=== PATIENT | female | born 1980 | race Hispanic/Latino ===

== ENCOUNTER 2019-09-16 02:07 | Emergency (ER) | payer OTHER ==
[2019-09-16 03:20] LABS: Barbiturates NEGATIVE (NEGATIVE); Benzodiazepines NEGATIVE (NEGATIVE); Cocaine NEGATIVE (NEGATIVE); METHAMPHETAM NEGATIVE (NEGATIVE); Methadone NEGATIVE (NEGATIVE); Opiates NEGATIVE (NEGATIVE); Phencyclidine NEGATIVE (NEGATIVE); THC Cannibis NEGATIVE (NEGATIVE)
[2019-09-16 03:22] LABS: Absolute Lymphocytes (CBC) 0.9 K/uL (0.7-4.9); Basophils % 0.3 % (0-1.3); Hematocrit 34.9 % (36.0-45.0); Lymphocytes % 9.1 % (15.3-44.8); MPV 10.1 fL (7.6-11.3); RBC Red Blood Cell Count 3.92 M/uL (3.86-4.86)
[2019-09-16 03:32] LABS: ALT/SGPT 21 U/L (12-78); AST/SGOT 11 U/L (15-37); Albumin 3.5 g/dL (3.4-5.0); Alkaline Phosphatase 40 U/L (45-117); BUN Blood Urea Nitrogen 11 mg/dL (7-18); Bicarbonate 23 mmol/L (21-32); Bilirubin Direct < 0.1 mg/dL (0-0.2); Bilirubin Total 0.2 mg/dL (0.2-1.0); Glucose Level 101 mg/dL (74-106); Lipase 141 U/L (73-393); Magnesium 1.9 mg/dL (1.8-2.4); Potassium 3.8 mmol/L (3.5-5.1); Protein, Total 6.9 g/dL (6.4-8.2); Sodium Level 140 mmol/L (136-145)
[2019-09-16 05:05] LABS: Urine Specific Gravity >1.030 (1.005-1.030)
[2019-09-16 05:05] LABS: Urine Blood TRACE (NEG); Urine Glucose NEGATIVE (NEG); Urine Protein 2+ (NEG); Urine Specific Gravity >1.030 (1.005-1.030); Urine pH 5.5 (5.0-7.0)
--- NOTE | 2019-09-16 05:17 | EDPHYS ---
Physician Documentation [facility] Name: Talia Marcial Age: 38 yrs Sex: Female : 1980 Arrival Date: 09/16/2019 Time: 02:11 Bed 6 Private MD: ED Physician Reginald Gandhi HPI: 09/16 05:13 This 38 yrs old Female presents to ER via EMS with complaints of Probable tw4 Seizure. 05:13 The patient presents after having a possible seizure episode, no tonic-clonic activity tw4 was appreciated, no post-ictal period is described. Character of seizure(s): Loss of consciousness: it is not known if the patient experienced loss of consciousness, Motor activity: the motor activity is unknown, Incontinence: none, Apnea: the patient did not experience apnea, Circulation: the patient did not experience evidence of pulse disturbance, Eye movements: are unknown. Seizure onset: just prior to arrival. Context: the seizure(s) was witnessed, by family. Seizure Hx: the patient has no previous seizure history. The patient has not experienced similar symptoms in the past. Historical: - Allergies: 02:25 No Known Allergies; ea - Home Meds: 02:25 muscle relaxer [Active]; ea - PMHx: 02:25 None; ea - PSHx: 02:25 ; ea - Immunization history:: Adult Immunizations up to date. - Coronavirus screen:: The patient has NOT traveled to [place], [place], or [place] in the past 14 days. - Social history:: Smoking status: Patient denies any tobacco usage or history of. - Ebola Screening: : No symptoms or risks identified at this time. ROS: 05:13 Constitutional: Negative for fever, chills, and weight loss. tw4 05:13 Eyes: Negative for injury, pain, redness, and discharge, Cardiovascular: Negative for chest pain, palpitations, and edema, Respiratory: Negative for shortness of breath, cough, wheezing, and pleuritic chest pain, Abdomen/GI: Negative for abdominal pain, nausea, vomiting, diarrhea, and constipation, Back: Negative for injury and pain, MS/Extremity: Negative for injury and deformity, Skin: Negative for injury, rash, and discoloration. 05:13 Neuro: Positive for altered mental status, seizure activity, Negative for dizziness, gait disturbance, hearing loss. 05:13 Psych: Positive for anxiety, Negative for depression, drug dependence, alcohol dependence, auditory hallucinations, visual hallucinations, homicidal ideation, insomnia, suicide gesture. Exam: 05:13 Constitutional: This is a well developed, well nourished patient who is awake, alert, tw4 and in no acute distress. Head/Face: Normocephalic, atraumatic. Chest/axilla: Normal chest wall appearance and motion. Nontender with no deformity. No lesions are appreciated. Cardiovascular: Regular rate and rhythm with a normal S1 and S2. No gallops, murmurs, or rubs. Normal PMI, no JVD. No pulse deficits. Respiratory: Lungs have equal breath sounds bilaterally, clear to auscultation and percussion. No rales, rhonchi or wheezes noted. No increased work of breathing, no retractions or nasal flaring. Abdomen/GI: Soft, non-tender, with normal bowel sounds. No distension or tympany. No guarding or rebound. No evidence of tenderness throughout. Back: No spinal tenderness. No costovertebral tenderness. Full range of motion. Skin: Warm, dry with normal turgor. Normal color with no rashes, no lesions, and no evidence of cellulitis. MS/ Extremity: Pulses equal, no cyanosis. Neurovascular intact. Full, normal range of motion. Neuro: Awake and alert, GCS 15, oriented to person, place, time, and situation. Cranial nerves II-XII grossly intact. Motor strength 5/5 in all extremities. Sensory grossly intact. Cerebellar exam normal. Normal gait. Vital Signs: 02:22 BP 125 / 79; Pulse 106; Resp 18; Temp 98.2; Pulse Ox 100% on R/A; Weight 59.87 kg; ea Height 5 ft. 2 in. (157.48 cm); Pain 0/10; 03:29 BP 103 / 68; Pulse 88; Resp 18; Pulse Ox 99% on R/A; ea 05:15 BP 101 / 80; Pulse 78; Resp 18; Temp 98; Pulse Ox 98% ; ea 02:22 Body Mass Index 24.14 (59.87 kg, 157.48 cm) ea [place] Coma Score: 02:26 Eye Response: spontaneous(4). Verbal Response: oriented(5). Motor Response: obeys ea commands(6). Total: 15. MDM: 02:15 Patient medically screened. tw4 05:13 Differential diagnosis: drug overdose, seizure. Data reviewed: vital signs, EMS record. Data reviewed: nurses notes. Data reviewed: lab test result(s), cardiac enzymes, CBC, electrolytes, hepatic panel, urine drug screen, radiologic studies, CT scan. Data interpreted: Pulse oximetry: Interpretation: normal. Counseling: I had a detailed discussion with the patient and/or guardian regarding: the historical points, exam findings, and any diagnostic results supporting the discharge/admit diagnosis, lab results. Special discussion: I discussed with the patient/guardian in detail that at this point there is no indication for admission to the hospital. It is understood, however, that if the symptoms persist or worsen the patient needs to return immediately for re-evaluation. 09/16 02:22 Order name: UDS; Complete Time: 03:52 09/16 03:52 Interpretation: Within normal limits. 09/16 02:22 Order name: Basic Metabolic Panel; Complete Time: 03:52 09/16 03:52 Interpretation: Normal except: CL 111; GFR 72. 09/16 02:22 Order name: CBC with Diff; Complete Time: 03:52 09/16 03:52 Interpretation: Normal except: HGB 11.7; HCT 34.9; LYM% 9.1; MIYA% 84.2; NEUT A 8.2. 09/16 02:22 Order name: Hepatic Function; Complete Time: 03:52 09/16 03:52 Interpretation: Normal except: AST 11; ALK 40; A/G 1.0. 09/16 02:22 Order name: Lipase; Complete Time: 03:52 09/16 02:22 Order name: Magnesium; Complete Time: 03:52 09/16 02:22 Order name: Cardiac monitoring; Complete Time: 02:54 09/16 02:22 Order name: IV Saline Lock; Complete Time: 02:36 09/16 02:22 Order name: Labs collected and sent; Complete Time: 02:36 09/16 02:22 Order name: NPO; Complete Time: 02:36 09/16 02:22 Order name: O2 Per Protocol; Complete Time: 02:36 09/16 02:52 Order name: Urine Dipstick--Ancillary (enter results); Complete Time: 05:12 mw2 09/16 05:12 Interpretation: Normal except: USPGR >1.030; UPROT 2+; UBLD TRACE. 09/16 03:52 Order name: CT Head Brain wo Cont 09/16 04:02 Order name: Urine --Ancillary (enter results); Complete Time: 05:12 mw2 09/16 05:12 Interpretation: Within normal limits. 09/16 02:22 Order name: O2 Sat Monitoring; Complete Time: 02:36 09/16 02:22 Order name: Urine Dipstick-Ancillary (obtain specimen); Complete Time: 02:51 09/16 02:22 Order name: Urine Test (obtain specimen); Complete Time: 02:50 Administered Medications: No medications were administered Disposition: 09/16/19 05:16 Discharged to Home. Impression: Anxiety disorder due to known physiological condition, Conversion disorder with seizures or convulsions. - Condition is Stable. - Discharge Instructions: Panic Attacks, Nonepileptic Seizures, Conversion Disorder. - Family Work Release, Medication Reconciliation Form, Thank You Letter, Antibiotic Education, Prescription Opioid Use form. - Follow up: Private Physician; When: Upon discharge from the Emergency Department; Reason: Recheck today's complaints, Continuance of care. Follow up: Norberto Silverio MD; When: Upon discharge from the Emergency Department; Reason: Recheck today's complaints, Continuance of care, Re-evaluation by your physician. - Problem is new. - Symptoms have improved. Signatures: Dispatcher [employer] EDRonit Andrew RN RN ea Wadley, Terrence, MD MD tw4 Corrections: (The following items were deleted from the chart) 05:32 05:16 09/16/2019 05:16 Discharged to Home. Impression: Anxiety disorder due to known ea physiological condition; Conversion disorder with seizures or convulsions. Condition is Stable. Forms are Medication Reconciliation Form, Thank You Letter, Antibiotic Education, Prescription Opioid Use. Follow up: Private Physician; When: Upon discharge from the Emergency Department; Reason: Recheck today's complaints, Continuance of care. Follow up: Norberto Silverio; When: Upon discharge from the Emergency Department; Reason: Recheck today's complaints, Continuance of care, Re-evaluation by your physician. Problem is new. Symptoms have improved. tw4
--- NOTE | 2019-09-16 05:17 | ER ---
Nurse's Notes [facility] Name: Talia Marcial Age: 38 yrs Sex: Female : 1980 Arrival Date: 09/16/2019 Time: 02:11 Bed 6 Private MD: Diagnosis: Anxiety disorder due to known physiological condition;Conversion disorder with seizures or convulsions Presentation: 09/16 02:12 Presenting complaint: EMS states: They came in and pt was shaking, screaming that she ea was burning and was holding onto . Transition of care: patient was not received from another setting of care. Onset of symptoms was September 16, 2019. Risk Assessment: Do you want to hurt yourself or someone else? Patient reports no desire to harm self or others. Initial Sepsis Screen: Does the patient meet any 2 criteria? No. Patient's initial sepsis screen is negative. Does the patient have a suspected source of infection? No. Patient's initial sepsis screen is negative. Care prior to arrival: None. 02:12 Method Of Arrival: EMS: [facility] ea 02:12 Acuity: DEVAUGHN 3 ea Triage Assessment: 02:26 General: Appears in no apparent distress. Behavior is calm, cooperative, appropriate ea for age. Pain: Denies pain. Neuro: Level of Consciousness is awake, alert, obeys commands, Oriented to person, place, time, situation. Respiratory: Airway is patent Respiratory effort is even, unlabored, Respiratory pattern is regular, symmetrical. Derm: Skin is pink, warm \T\ dry. Historical: - Allergies: 02:25 No Known Allergies; ea - Home Meds: 02:25 muscle relaxer [Active]; ea - PMHx: 02:25 None; ea - PSHx: 02:25 ; ea - Immunization history:: Adult Immunizations up to date. - Coronavirus screen:: The patient has NOT traveled to [place], [place], or [place] in the past 14 days. - Social history:: Smoking status: Patient denies any tobacco usage or history of. - Ebola Screening: : No symptoms or risks identified at this time. Screenin:23 Abuse screen: Denies threats or abuse. Nutritional screening: No deficits noted. ea Tuberculosis screening: No symptoms or risk factors identified. Fall Risk None identified. Assessment: 02:26 Reassessment: see triage assessment. ea 02:54 Reassessment: Patient and/or family updated on plan of care and expected duration. Pain ea level reassessed. Patient is alert, oriented x 3, equal unlabored respirations, skin warm/dry/pink. Patient denies pain at this time. 03:29 Reassessment: Patient and/or family updated on plan of care and expected duration. Pain ea level reassessed. Patient is alert, oriented x 3, equal unlabored respirations, skin warm/dry/pink. 04:08 Reassessment: Patient and/or family updated on plan of care and expected duration. Pain ea level reassessed. Patient is alert, oriented x 3, equal unlabored respirations, skin warm/dry/pink. 05:30 Reassessment: Patient and/or family updated on plan of care and expected duration. Pain ea level reassessed. Patient is alert, oriented x 3, equal unlabored respirations, skin warm/dry/pink. Discharge instruction given to patient, verbalized the understanding of instruction. Pt left ED ambulatory accompanied by family. Pt tolerated well Patient denies pain at this time. Vital Signs: 02:22 BP 125 / 79; Pulse 106; Resp 18; Temp 98.2; Pulse Ox 100% on R/A; Weight 59.87 kg; ea Height 5 ft. 2 in. (157.48 cm); Pain 0/10; 03:29 BP 103 / 68; Pulse 88; Resp 18; Pulse Ox 99% on R/A; ea 05:15 BP 101 / 80; Pulse 78; Resp 18; Temp 98; Pulse Ox 98% ; ea 02:22 Body Mass Index 24.14 (59.87 kg, 157.48 cm) ea [place] Coma Score: 02:26 Eye Response: spontaneous(4). Verbal Response: oriented(5). Motor Response: obeys ea commands(6). Total: 15. ED Course: 02:11 Patient arrived in ED. ea 02:15 Reginald Gandhi MD is Attending Physician. tw4 02:22 Triage completed. ea 02:25 Arm band placed on right wrist. Patient placed in an exam room, on a stretcher, on ea pulse oximetry. 02:25 Patient has correct armband on for positive identification. Bed in low position. Call ea light in reach. Side rails up X2. 02:25 Seizure precautions initiated. ea 02:27 Knutson, Ronit, RN is Primary Nurse. ea 02:36 Inserted saline lock: 20 gauge in right antecubital area, using aseptic technique. ea Blood collected. 04:19 CT Head Brain wo Cont In Process Unspecified. EDMS 05:15 IV discontinued, intact, bleeding controlled, No redness/swelling at site. Pressure ea dressing applied. 05:16 Norberto Silverio MD is Referral Physician. tw4 05:31 No provider procedures requiring assistance completed. ea Administered Medications: No medications were administered Outcome: 05:16 Discharge ordered by . tw4 05:31 Discharged to home ambulatory, with family. ea 05:31 Condition: stable 05:31 Discharge instructions given to patient, family, Instructed on discharge instructions, follow up and referral plans. Demonstrated understanding of instructions, follow-up care. 05:32 Patient left the ED. ea Signatures: Dispatcher [employer] EDRonit Andrew, Reginald Hicks RN, ea, MD MD tw4
[2019-09-16 05:39] VITALS: BP 101/80; TEMP 98; O2SAT 98
--- NOTE | 2019-09-17 10:45 | RAD REPORT ---
EXAM DESCRIPTION: CT Head Without Intravenous Contrast CLINICAL HISTORY: The patient is 38 years old and is Female; SEIZURE TECHNIQUE: Axial computed tomography images of the head/brain without intravenous contrast. Sagitt al and coronal reformatted images were created and reviewed. This CT exam was performed using one o r more of the following dose reduction techniques: automated exposure control, adjustment of the mA and/or kV according to patient size, and/or use of iterative reconstruction technique. COMPARISON: No relevant prior studies available. FINDINGS: BRAIN: Unremarkable. The vale-white matter differentiation is preserved . No hemorrhag e. No significant white matter disease. No edema. No extra-axial fluid collections. VENTRICLES: Unremarkable. No ventriculomegaly. BONES/JOINTS: No acute fracture. SOFT TISSUES: Unremarkable. SINUSES: Unremarkable as visualized. No acute sinusitis. MASTOID AIR CELLS: Unremarkable as visualized. No mastoid effusion. ORBITS: Unremarkable as visualized. IMPRESSION: No acute intracranial findings. Electronically signed by: Shanna Damian MD 09/16/2019 4:50 AM MARRIAGE AND FAMILY THERAPIST Due to temporary technical issues with the PACS/Fluency reporting system, reports are being signed by the in house radiologist as a courtesy to ensure prompt reporting. The interpreting radiologist is f ully responsible for the content of the report.
== END 2019-09-16 05:32 | disposition home or self-care (01) ==
LOC: ER 02:07
DX: F44.5 Conversion disorder with seizures or convulsions (principal); F41.9 Anxiety disorder, unspecified
CPT/HCPCS: 36415; 70450; 80048; 80076; 80307; 81003; 81025; 83690; 83735; 85025; 99284

== ENCOUNTER 2022-06-25 06:28 | Emergency (ER) | payer OTHER ==
--- NOTE | 2022-06-25 09:14 | ER ---
Nurse's Notes [facility] Name: Talia Marcial Age: 41 yrs Sex: Female : 1980 Arrival Date: 06/25/2022 Time: 06:32 Bed 5 Private MD: Diagnosis: Myalgia;Fever, unspecified;Pain in throat Presentation: 06/25 06:42 Chief complaint: Spouse and/or significant other states: "she has a sore throat, as6 headache, and body aches". Coronavirus screen: Client presents with at least one sign or symptom that may indicate coronavirus-19. Ebola Screen: No symptoms or risks identified at this time. Initial Sepsis Screen: Does the patient meet any 2 criteria? No. Patient's initial sepsis screen is negative. Does the patient have a suspected source of infection? No. Patient's initial sepsis screen is negative. Risk Assessment: Do you want to hurt yourself or someone else? Patient reports no desire to harm self or others. Onset of symptoms was June 23, 2022. 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 - Social history:: Smoking status: Patient denies any tobacco usage or history of. Screenin:54 Abuse screen: Denies threats or abuse. Denies injuries from another. Nutritional as6 screening: No deficits noted. Tuberculosis screening: No symptoms or risk factors identified. Fall Risk None identified. Assessment: 06:53 General: Appears uncomfortable, Behavior is calm, cooperative. Pain: Complains of pain as6 in generalized Quality of pain is described as aching. Neuro: Reports headache. Respiratory: Reports cough that is Respiratory effort is even, unlabored, Breath sounds are clear bilaterally. EENT: Throat is reddened. 07:09 Reassessment: Patient appears in no apparent distress at this time. No changes from kc6 previously documented assessment. Patient and/or family updated on plan of care and expected duration. Pain level reassessed. Patient is alert, oriented x 3, equal unlabored respirations, skin warm/dry/pink. 07:09 Respiratory: Airway is patent Trachea midline. kc6 08:10 Reassessment: Patient appears in no apparent distress at this time. No changes from kc6 previously documented assessment. Patient and/or family updated on plan of care and expected duration. Pain level reassessed. Patient is alert, oriented x 3, equal unlabored respirations, skin warm/dry/pink. 09:10 Reassessment: Patient appears in no apparent distress at this time. No changes from kc6 previously documented assessment. Patient and/or family updated on plan of care and expected duration. Pain level reassessed. Patient is alert, oriented x 3, equal unlabored respirations, skin warm/dry/pink. Vital Signs: 06:42 BP 122 / 76; Pulse 83; Resp 18 S; Temp 98.6(O); Pulse Ox 99% on R/A; Weight 64.41 kg as6 (R); Height 5 ft. 2 in. (157.48 cm) (R); Pain 9/10; 08:01 BP 115 / 81; Pulse 74; Resp 18 S; Temp 98.4(O); Pulse Ox 100% on R/A; kc6 09:01 BP 109 / 75; Pulse 71; Resp 16 S; Pulse Ox 100% on R/A; kc6 06:42 Body Mass Index 25.97 (64.41 kg, 157.48 cm) as6 ED Course: 06:32 Patient arrived in ED. ja2 06:38 Vipul Ross, RN is Primary Nurse. as6 06:46 Triage completed. as6 06:47 Arm band placed on. as6 06:54 Bed in low position. Call light in reach. Side rails up X 1. as6 06:57 Boris Mcneal DO is Attending Physician. ms3 06:58 Influenza Screen (A Sent. as6 06:58 Strep Sent. as6 06:58 Influenza Screen (a \\T\\ B) Sent. as6 07:05 SARS-COV-2 RT PCR (Document "Date of Onset" if Symptomatic) Sent. kc6 09:13 Jarred Lerner DO is Referral Physician. ms3 09:28 No provider procedures requiring assistance completed. Patient did not have IV access kc6 during this emergency room visit. Administered Medications: No medications were administered Medication: 06:54 VIS not applicable for this client. as6 Outcome: 09:14 Discharge ordered by . ms3 09:28 Discharged to home ambulatory, with family. kc6 09:28 Condition: stable 09:28 Discharge instructions given to patient, family, Instructed on discharge instructions, follow up and referral plans. medication usage, Demonstrated understanding of instructions, follow-up care, medications, Prescriptions given X 1. 09:28 Patient left the ED. kc6 Signatures: Boris Mcneal DO DO ms3 Eligio GottliebVipul Huerta, RN RN as6 Shahnaz Vu RN RN kc6
--- NOTE | 2022-06-25 09:14 | EDPHYS ---
Physician Documentation [facility] Name: Talia Marcial Age: 41 yrs Sex: Female : 1980 Arrival Date: 06/25/2022 Time: 06:32 Bed 5 Private MD: ED Physician Boris Mcneal HPI: 06/25 09:15 This 41 yrs old Female presents to ER via Ambulatory with complaints of Sore ms3 Throat. 09:15 The patient presents with sore throat. The patient describes throat pain as aching. ms3 Onset: The symptoms/episode began/occurred 2 day(s) ago. Severity of symptoms: At their worst the symptoms were severe, in the emergency department the symptoms are unchanged, a " 9" out of "10". Modifying factors: The symptoms are alleviated by nothing, the symptoms are aggravated by nothing. 09:17 Associated signs and symptoms: Pertinent positives: chills, fever, headache. 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 - Social history:: Smoking status: Patient denies any tobacco usage or history of. ROS: 09:17 Abdomen/GI: Negative for abdominal pain, nausea, vomiting, diarrhea, and constipation, ms3 MS/Extremity: Negative for injury and deformity. 09:17 Constitutional: Negative for fever, and chills. Neck: Negative for injury, pain, and swelling, Cardiovascular: Negative for chest pain, and palpitations. 09:17 ENT: Positive for sore throat. 09:17 Respiratory: Positive for cough. 09:17 All other systems are negative. 09:17 Neuro: Positive for headache. ms3 Exam: 09:17 Constitutional: This is a well developed, well nourished patient who is awake, alert, ms3 and in no acute distress. Head/Face: Normocephalic, atraumatic. Neck: Trachea midline, no cervical lymphadenopathy. Supple, full range of motion without nuchal rigidity, or vertebral point tenderness. No Meningismus. Chest/axilla: Normal chest wall appearance and motion. Nontender with no deformity. Cardiovascular: Regular rate and rhythm with a normal S1 and S2. No gallops, murmurs, or rubs. Normal PMI, no JVD. No pulse deficits. Respiratory: Lungs have equal breath sounds bilaterally, clear to auscultation and percussion. No rales, rhonchi or wheezes noted. No increased work of breathing, no retractions or nasal flaring. Abdomen/GI: Soft, non-tender, with normal bowel sounds. No distension or tympany. No guarding or rebound. No evidence of tenderness throughout. 09:17 ENT: Exam is negative for Posterior pharynx: Tonsils: are normal in appearance, no enlargement, no erythema, no exudate, Uvula: normal, non-edematous, no erythema, swelling, is not appreciated, erythema, is not appreciated, exudate, is not appreciated, peritonsillar mass, is not appreciated. Vital Signs: 06:42 BP 122 / 76; Pulse 83; Resp 18 S; Temp 98.6(O); Pulse Ox 99% on R/A; Weight 64.41 kg as6 (R); Height 5 ft. 2 in. (157.48 cm) (R); Pain 9/10; 08:01 BP 115 / 81; Pulse 74; Resp 18 S; Temp 98.4(O); Pulse Ox 100% on R/A; kc6 09:01 BP 109 / 75; Pulse 71; Resp 16 S; Pulse Ox 100% on R/A; kc6 06:42 Body Mass Index 25.97 (64.41 kg, 157.48 cm) as6 MDM: 07:13 Patient medically screened. ms3 09:17 Data reviewed: vital signs, nurses notes, lab test result(s), and as a result, I will ms3 discharge patient. Counseling: I had a detailed discussion with the patient and/or guardian regarding: the historical points, exam findings, and any diagnostic results supporting the discharge/admit diagnosis, lab results, the need for outpatient follow up, to return to the emergency department if symptoms worsen or persist or if there are any questions or concerns that arise at home. ED course: Discussed labs with patient. Patient to follow-up with primary care physician in 2 to 3 days. Patient stands agrees with plan. All questions were answered. Return precautions discussed include worsening symptoms, or any other concerns. 06/25 06:50 Order name: Influenza Screen (a \\T\\ B); Complete Time: 09:12 as6 06/25 06:50 Order name: Strep; Complete Time: 09:12 as6 06/25 06:52 Order name: Influenza Screen (A ; Complete Time: 09:12 EDMS 06/25 06:58 Order name: SARS-COV-2 RT PCR (Document "Date of Onset" if Symptomatic) as6 06/25 07:45 Order name: Throat Culture EDMS Administered Medications: No medications were administered Disposition Summary: 06/25/22 09:14 Discharge Ordered Location: Home ms3 Condition: Stable ms3 Diagnosis - Myalgia ms3 - Fever, unspecified ms3 - Pain in throat ms3 Followup: ms3 - With: Jarred Lerner DO - When: 2 - 3 days - Reason: Recheck today's complaints Discharge Instructions: - Discharge Summary Sheet ms3 - Fever, Adult ms3 - Sore Throat ms3 Forms: - Medication Reconciliation Form ms3 - Work release form ss - Thank You Letter ms3 - Antibiotic Education ms3 - Prescription Opioid Use ms3 Prescriptions: - Tessalon Perles 100 mg Oral Capsule - take 1 capsule by ORAL route every 8 hours As needed; 15 capsule; Refills: 0, ms3 Product Selection Permitted Signatures: Dispatcher [employer] EDMS Boris Mcneal DO DO ms3 Vipul Ross RN RN as6 Corrections: (The following items were deleted from the chart) 09:18 09:17 Constitutional: Negative for fever, and chills. Neck: Negative for injury, pain, ms3 and swelling, Cardiovascular: Negative for chest pain, and palpitations. ms3
[2022-06-25 09:53] VITALS: TEMP 98.4; O2SAT 100
[2022-06-25 09:55] VITALS: BP 109/75
== END 2022-06-25 09:28 | disposition home or self-care (01) ==
LOC: ER 06:28
DX: R50.9 Fever, unspecified (principal); M79.10 Myalgia, unspecified site; R07.0 Pain in throat; Z20.822 Contact with and (suspected) exposure to COVID-19
CPT/HCPCS: 87070; 87081; 87804 ×2; 99283; U0003

== ENCOUNTER 2022-10-29 18:15 | Emergency (ER) | payer OTHER ==
[2022-10-29 23:02] VITALS: BP 132/81; TEMP 97.4; O2SAT 100
--- NOTE | 2022-11-10 17:18 | ER ---
Nurse's Notes [facility] Name: Talia Marcial Age: 41 yrs Sex: Female : 1980 Arrival Date: 10/29/2022 Time: 18:24 Bed IW1 Private MD: Diagnosis: Presentation: 10/29 19:10 Chief complaint: Patient states: "I've always suffered from back pain for 2 years now mb9 but today is worse and came in today to get medication prescribed. The whole back hurts". Coronavirus screen: Vaccine status: Patient reports receiving the 2nd dose of the covid vaccine. Ebola Screen: No symptoms or risks identified at this time. Initial Sepsis Screen: Does the patient meet any 2 criteria? No. Patient's initial sepsis screen is negative. Does the patient have a suspected source of infection? No. Patient's initial sepsis screen is negative. Risk Assessment: Do you want to hurt yourself or someone else? Patient reports no desire to harm self or others. Onset of symptoms was October 29, 2022. 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 - Social history:: Smoking status: Patient denies any tobacco usage or history of. 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 ID access number [id number]. mb9 Vital Signs: 19:10 BP 132 / 81; Pulse 80; Resp 18; Temp 97.4; Pulse Ox 100% ; Weight 64.41 kg (R); Height mb9 5 ft. 2 in. (R); Pain 8/10; 19:10 Body Mass Index 25.97 (64.41 kg, 157.48 cm) mb9 19:10 Pain Scale: Adult mb9 ED Course: 18:24 Patient arrived in ED. mr 19:16 Triage completed. mb9 19:17 Arm band placed on. mb9 19:39 Tommy Galaviz MD is Attending Physician. mavis 20:41 Radiology exam delayed due to test not completed at this time. 4 Administered Medications: No medications were administered Medication: 19:17 VIS not applicable for this client. mb9 Outcome: 22:16 Patient left the ED. bb Signatures: Tommy Galaviz MD MD cha Rivera, Mary mr StephanieVicki RN RN bb Hall, [facility] Siobhan Colin RN RN mb9 Corrections: (The following items were deleted from the chart) 19:17 19:16 Home Meds: None; ly9 mb9
--- NOTE | 2022-11-10 17:18 | EDPHYS ---
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 - Social history:: Smoking status: Patient denies any tobacco usage or history of. Vital Signs: 19:10 BP 132 / 81; Pulse 80; Resp 18; Temp 97.4; Pulse Ox 100% ; Weight 64.41 kg (R); Height mb9 5 ft. 2 in. (R); Pain 8/10; 19:10 Body Mass Index 25.97 (64.41 kg, 157.48 cm) mb9 19:10 Pain Scale: Adult mb9 MDM: 19:39 Patient medically screened. mavis 10/29 19:40 Order name: Urine Dipstick-Ancillary (obtain specimen) mavis 10/29 19:40 Order name: Urine Test (obtain specimen) mavis Administered Medications: No medications were administered Disposition Summary: 10/29/22 21:46 Eloped Disposition: before being seen by provider mavis Reason: (see nurse's notes) mavis Signatures: Dispatcher [employer] Tommy Ferguson MD MD cha Breneman, Mary Beth RN RN mb9 Corrections: (The following items were deleted from the chart) 19:17 19:16 Home Meds: None; mb9 mb9
== END 2022-10-29 22:16 | disposition left against medical advice (07) ==
LOC: ER 18:15
DX: Z53.21 Procedure and treatment not carried out due to patient leaving prior to being seen by health care provider (principal)
CPT/HCPCS: 99281

== ENCOUNTER 2023-02-02 08:43 | Emergency (ER) | payer OTHER ==
--- OUTSIDE RECORDS SUMMARY | 2023-02-02 08:46 | XMS REPORT | Continuity of Care Document ---
:1980 Author Organization [facility] t Address [address] [place] [address] [place] [id number] Care Team Providers Name Role Phone Unavailable Unavailable Unavailable Problems This patient has no known problems. Allergies, Adverse Reactions, Alerts This patient has no known allergies or adverse reactions. Medications This patient has no known medications. Procedures This patient has no known procedures. Encounters Start End Encounter Admission Attending Care Care Encounter Source Date/Time Date/Time Type Type Clinicians Facility Department ID 2022-12-05 2022-12-05 Outpatient [facility] [id number] 15:15:35 15:15:35 [id number] [address] [place] Results This patient has no known results.
[2023-02-02 09:42] LABS: SARS-CoV-2 Antigen Rapid Res Negative (Negative)
--- NOTE | 2023-02-02 09:52 | EDPHYS ---
Physician Documentation [facility] Name: Talia Marcial Age: 42 yrs Sex: Female : 1980 Arrival Date: 02/02/2023 Time: 08:43 Bed 12 Private MD: ED Physician Lalit Escobedo HPI: 02/02 09:36 This 42 yrs old Female presents to ER via Ambulatory with complaints of Flu snw Symptoms. 09:36 Onset: The symptoms/episode began/occurred suddenly, 1 day(s) ago, and became snw persistent. Associated signs and symptoms: Pertinent positives: congestion, cough, nasal discharge, sore throat. Modifying factors: The patient symptoms are alleviated by nothing. The patient has not experienced similar symptoms in the past. The patient has not recently seen a physician. Historical: - Allergies: 08:51 No Known Allergies; iw - Home Meds: 08:51 None [Active]; iw - PSHx: 08:51 section; iw - Social history:: Smoking status: . ROS: 09:35 Constitutional: Negative for fever, chills, and weight loss, Eyes: Negative for injury, snw pain, redness, and discharge, ENT: Negative for injury and discharge, sinus congestion Neck: Negative for injury, pain, and swelling, Cardiovascular: Negative for chest pain, palpitations, and edema. 09:35 Abdomen/GI: Negative for abdominal pain, nausea, vomiting, diarrhea, and constipation, Back: Negative for injury and pain, : Negative for injury, bleeding, discharge, and swelling, MS/Extremity: Negative for injury and deformity, Skin: Negative for injury, rash, and discoloration, Neuro: Negative for headache, weakness, numbness, tingling, and seizure, Psych: Negative for depression, anxiety, suicide ideation, homicidal ideation, and hallucinations. 09:35 Respiratory: Positive for cough, with no reported sputum. Exam: 09:34 Constitutional: This is a well developed, well nourished patient who is awake, alert, snw and in no acute distress. 09:34 Eyes: Pupils equal round and reactive to light, extra-ocular motions intact. Lids and lashes normal. Conjunctiva and sclera are non-icteric and not injected. Cornea within normal limits. Periorbital areas with no swelling, redness, or edema. 09:34 Neck: Trachea midline, no thyromegaly or masses palpated, and no cervical lymphadenopathy. Supple, full range of motion without nuchal rigidity, or vertebral point tenderness. No Meningismus. Chest/axilla: Normal chest wall appearance and motion. Nontender with no deformity. No lesions are appreciated. Cardiovascular: Regular rate and rhythm with a normal S1 and S2. No gallops, murmurs, or rubs. Normal PMI, no JVD. No pulse deficits. Respiratory: Lungs have equal breath sounds bilaterally, clear to auscultation and percussion. No rales, rhonchi or wheezes noted. No increased work of breathing, no retractions or nasal flaring. Abdomen/GI: Soft, non-tender, with normal bowel sounds. No distension or tympany. No guarding or rebound. No evidence of tenderness throughout. Back: No spinal tenderness. No costovertebral tenderness. Full range of motion. Skin: Warm, dry with normal turgor. Normal color with no rashes, no lesions, and no evidence of cellulitis. MS/ Extremity: Pulses equal, no cyanosis. Neurovascular intact. Full, normal range of motion. Neuro: Awake and alert, GCS 15, oriented to person, place, time, and situation. Cranial nerves II-XII grossly intact. Motor strength 5/5 in all extremities. Sensory grossly intact. Cerebellar exam normal. Normal gait. 09:34 Head/face: Noted is sinus congestion. 09:34 ENT: TM's: are normal, Nose: Nasal mucosa: edematous, Mouth: is normal, Posterior pharynx: erythema, that is moderate, Voice: is normal. Vital Signs: 08:50 BP 121 / 64; Pulse 90; Resp 16; Temp 99; Pulse Ox 98% on R/A; Weight 62.6 kg; Height 5 iw ft. 2 in. ; 08:50 Body Mass Index 25.24 (62.60 kg, 157.48 cm) iw MDM: 08:54 Patient medically screened. snw 09:49 Differential diagnosis: viral Infection, bacterial infection. Data reviewed: vital snw signs, nurses notes, lab test result(s). I considered the following discharge prescriptions or medication management in the emergency department Medications were administered in the Emergency Department. See MAR. Counseling: I had a detailed discussion with the patient and/or guardian regarding: the historical points, exam findings, and any diagnostic results supporting the discharge/admit diagnosis, lab results, the need for outpatient follow up, to return to the emergency department if symptoms worsen or persist or if there are any questions or concerns that arise at home. Special discussion: Based on the history and exam findings, there is no indication for further emergent testing or inpatient evaluation. I discussed with the patient/guardian the need to see the primary care provider for further evaluation of the symptoms. 02/02 08:54 Order name: Flu; Complete Time: 09:42 snw 02/02 08:54 Order name: Strep snw 02/02 08:54 Order name: SARS RAPID; Complete Time: 09:42 snw 02/02 09:46 Order name: Throat Culture EDMS Administered Medications: 10:10 Drug: Famotidine PO 20 mg Route: PO; iw 10:10 Drug: ZyrTEC - Cetirizine PO 10 mg Route: PO; iw 10:10 Drug: Tussionex Pennkinetic ER PO Suspension 2.5 ml Route: PO; iw Disposition: 11:45 Co-signature as Attending Physician, Indu VARELA PA/HAND CIGAR MAKING SUPERVISOR's history reviewed, [id number] patient interviewed, and examined. I agree with assessment and care plan and confirm the diagnosis (es) above. Disposition Summary: 02/02/23 09:51 Discharge Ordered Location: Home snw Condition: Stable snw Diagnosis - Acute bronchitis, unspecified snw Followup: snw - With: Emergency Department - When: As needed - Reason: Worsening of condition Followup: snw - With: Private Physician - When: 2 - 3 days - Reason: Recheck today's complaints, Continuance of care, Re-evaluation by your physician Discharge Instructions: - Discharge Summary Sheet snw - Acute Bronchitis, Adult snw Forms: - Medication Reconciliation Form snw - Thank You Letter snw - Antibiotic Education snw - Prescription Opioid Use snw - Work release form iw Prescriptions: - Zyrtec 10 mg Oral Tablet - take 1 tablet by ORAL route once daily As needed; 20 tablet; Refills: 0, snw Product Selection Permitted - Tessalon Perles 100 mg Oral Capsule - take 1 capsule by ORAL route every 8 hours As needed; 15 capsule; Refills: 0, snw Product Selection Permitted - Pepcid 20 mg Oral Tablet - take 1 tablet by ORAL route once daily; 20 tablet; Refills: 0, Product snw Selection Permitted Signatures: Dispatcher [employer] Tommy Ferguson MD MD cha Waters, Shelly, TILE PRESSER-C TILE PRESSER-Amyw Sabiha Durant, RN RN Lalit Law MD MD [email or web address] Corrections: (The following items were deleted from the chart) 08:52 08:51 PMHx: None; vladislav loomis
--- NOTE | 2023-02-02 09:52 | ER ---
Nurse's Notes [facility] Name: Talia Marcial Age: 42 yrs Sex: Female : 1980 Arrival Date: 02/02/2023 Time: 08:43 Bed 12 Private MD: Diagnosis: Acute bronchitis, unspecified Presentation: 02/02 08:50 Chief complaint: Patient states: right ear pain, sore throat, fever, body aches since iw last night, took ibuprofen at 1 am. Coronavirus screen: Client presents with at least one sign or symptom that may indicate coronavirus-19. Ebola Screen: Patient negative for fever greater than or equal to 101.5 degrees Fahrenheit, and additional compatible Ebola Virus Disease symptoms Patient denies exposure to infectious person. Patient denies travel to an Ebola-affected area in the 21 days before illness onset. No symptoms or risks identified at this time. Initial Sepsis Screen: Does the patient meet any 2 criteria? No. Patient's initial sepsis screen is negative. Does the patient have a suspected source of infection? No. Patient's initial sepsis screen is negative. Risk Assessment: Do you want to hurt yourself or someone else? Patient reports no desire to harm self or others. Onset of symptoms was February 01, 2023. 08:50 Method Of Arrival: Ambulatory iw 08:50 Acuity: DEVAUGHN 4 iw Historical: - Allergies: 08:51 No Known Allergies; iw - Home Meds: 08:51 None [Active]; iw - PSHx: 08:51 section; iw - Social history:: Smoking status: . Screenin:25 [facility] ED Fall Risk Assessment (Adult) History of falling in the last 3 months, iw including since admission No falls in past 3 months (0 pts). Abuse screen: Denies threats or abuse. Denies injuries from another. Nutritional screening: No deficits noted. Tuberculosis screening: No symptoms or risk factors identified. Assessment: 09:24 General: Appears in no apparent distress. Behavior is calm, cooperative. General: iw Reports fever for 12-24 hours, feeling ill for 12-24 hours. Pain: Complains of pain in body aches. Neuro: Level of Consciousness is awake, alert, obeys commands, Oriented to person, place, time, situation, Moves all extremities. Full function. Cardiovascular: Patient's skin is warm and dry. Respiratory: Respiratory effort is even, unlabored, Respiratory pattern is regular, symmetrical. GI: Abdomen is non-distended. Derm: Skin is intact, is healthy with good turgor. Musculoskeletal: Range of motion: intact in all extremities. Vital Signs: 08:50 BP 121 / 64; Pulse 90; Resp 16; Temp 99; Pulse Ox 98% on R/A; Weight 62.6 kg; Height 5 iw ft. 2 in. ; 08:50 Body Mass Index 25.24 (62.60 kg, 157.48 cm) iw ED Course: 08:44 Patient arrived in ED. im 08:51 Triage completed. iw 08:52 Arm band placed on. iw 08:53 Indu Guerrero FNP-C is PHCP. snw 08:53 Lalit Escobedo MD is Attending Physician. snw 09:24 Sabiha Durant RN is Primary Nurse. iw 09:25 No provider procedures requiring assistance completed. Patient did not have IV access iw during this emergency room visit. Administered Medications: 10:10 Drug: Famotidine PO 20 mg Route: PO; iw 10:10 Drug: ZyrTEC - Cetirizine PO 10 mg Route: PO; iw 10:10 Drug: Tussionex Pennkinetic ER PO Suspension 2.5 ml Route: PO; iw Medication: 09:25 VIS not applicable for this client. iw Outcome: 09:51 Discharge ordered by . snw 10:23 Patient left the ED. iw Signatures: Indu Guerrero FNP-C VACUUM COOKER OPERATOR-Csnw Sabiha Durant, LAINE RN iw Rosmery Cintron im Corrections: (The following items were deleted from the chart) 08:52 08:51 PMHx: None; iw iw
[2023-02-02] MEDS ORDERED: CETIRIZINE HCL 5 MG TABLET ONE (10:11)
[2023-02-02] MEDS ORDERED: FAMOTIDINE 20 MG TAB ONE (10:12)
[2023-02-02] MEDS ORDERED: HYDROCODONE/CHLORPHEN 5 ML/OSYR ONE (10:12)
[2023-02-02 10:27] VITALS: BP 121/64; TEMP 99; O2SAT 98
== END 2023-02-02 10:23 | disposition home or self-care (01) ==
LOC: ER 08:43
DX: J20.9 Acute bronchitis, unspecified (principal); Z20.822 Contact with and (suspected) exposure to COVID-19
CPT/HCPCS: 36415; 87070; 87081; 87804; 87811; 99282

== ENCOUNTER 2023-02-24 04:24 | Emergency (ER) | payer OTHER ==
--- OUTSIDE RECORDS SUMMARY | 2023-02-24 04:26 | XMS REPORT | Continuity of Care Document ---
:1980 Author Organization [facility] t Address [address] [facility] [address] [place] [address] Care Team Providers Name Role Phone JAYA CARDOSO Primary Care Physician Unavailable Noe Irving Attending Clinician NOE GHOTRA Attending Clinician Unavailable NOE GHOTRA Admitting Clinician Unavailable Payers Payer Name Policy Type Policy Number Effective Date Expiration Date S ource Problems This patient has no known problems. Allergies, Adverse Reactions, Alerts Allergy Allergy Status Severity Reaction(s) Onset Inactive Treating Comm ents Source Name Type Date Date Clinician NO KNOWN Drug Active Univers ALLERGIE Class ity of [facility] Social History Social Habit Start Date Stop Date Quantity Comments Source Sex Assigned At [birth year] [facility] y of [place] 00:00:00 00:00:00 Medical Branch Smoking Status Start Date Stop Date Source Tobacco smoking consumption [facility] Branch Medications Ordered Filled Start Stop Current Ordering Indication Dosage Frequency Signature Comments Components Source Medication Medication Date Date Medication? Clinician (SIG) Name Name amoxicillin 2022-0 2022- No 1{tbl} 1 tablet, Univers -clavulanat 02-0418 Oral, ity [facility] 05:43: 05:51 ONCE, 1 [place] (AUGMENTIN) 00 :00 dose, On [facility] jordin 875-125 mg [facility] per tablet 02/04/23 at 1 tablet 0045, DONNY
Re ason for Anti-Infec tive: Documented Infection< br>Documen val Infection Site: Respirator y
Durat ion of Therapy: Other (see Comments) ibuprofen 2022- No 600mg 600 mg, Uni vers (IBU) 02-04 Oral, ity of tablet 600 04:30: 04:46 ONCE, 1 [place] as mg 00 :00 dose, On Medical Sat Branch 02/03/23 at 2330, DONNY albuterol Yes [id number] 2{puff} Inhale 2 Univers 90 - Puffs ity of mcg/actuati 00:00: every 4 [place] as on inhaler 00 (four) Medical hours as Branch needed for Wheezing, Shortness of Breath or Bronchospa sm. amoxicillin 2022- Yes [id number] 1{tbl} Take 1 Univers -clavulanat 02-04 tablet by it y of e 875-125 00:00: 04:59 mouth in [place] as mg per 00 :00 the Medical tablet morning Branch and 1 tablet in the evening. Do all this for 10 days. azithromyci 2022- Yes [id number] 500mg Take 1 Univers n 500 mg 02-04 tablet by ity o f tablet 00:00: 04:59 mouth in [place] 00 :00 the Medical morning Branch for 3 days. Vital Signs Vital Name Observation Time Observation Value Comments Source Systolic blood 2023-02-04 04:06:00 134 mm[facility] Diastolic blood 2023-02-04 04:06:00 79 mm[Hg] [facility] [place] Heart rate 2023-02-04 04:06:00 87 /min [facility] Body temperature 2023-02-04 04:06:00 36.83 [facility] Respiratory rate 2023-02-04 04:06:00 18 /min [facility] Body height 2023-02-04 04:06:00 157.5 cm [facility] Body weight 2023-02-04 04:06:00 64.864 kg [facility] BMI 2023-02-04 04:06:00 26.16 kg/m2 [facility] Oxygen saturation in 2023-02-04 04:06:00 97 /min [facility] of Arterial blood by [facility] Pulse oximetry Branch Procedures Procedure Date / Time Performed Performing Clinician Ochoa chan RAPID INFLUENZA A/B 2023-02-04 04:46:00 Noe Ghotra ty of [facility] COVID-19 (ID NOW RAPID 2023-02-04 04:46:00 Noe Ghotra [facility] TESTING) Medical Branch XR CHEST 2 VW 2023-02-04 04:41:51 Noe Ghotra [place] o f [facility] ASSIGNMENT OF BENEFITS 2023-02-04 04:30:43 Doctor Unassigned, No [facility] Name Medical Branch NOTICE OF PRIVACY 2023-02-04 03:46:30 Doctor Unassigned, No [facility] Name Medical [place] CONSENT/REFUSAL FOR 2023-02-04 03:46:07 Doctor Unassigned, No [facility] DIAGNOSIS AND Name Medical Branch TREATMENT Encounters Start End Encounter Admission Attending Care Care Encounter Source Date/Time Date/Time Type Type Clinicians Facility Department ID 2023-02-21 2023-02-21 Outpatient SFA [id number] [id number] [place] 07:30:05 07:30:05 [id number] F Willard 2023-02-13 2023-02-13 Outpatient SFA [id number] [id number] [place] 07:43:25 07:43:25 [id number] F Willard 2023-02-09 2023-02-09 Outpatient SFA SFA [id number] [place] 07:51:27 07:51:27 [id number] F Willard 2023-02-03 2023-02-04 Emergency Brandin [facility] [id number] Univers 23:09:00 01:07:00 Noe EDMONDS [id number] i [facility] [id number] [facility] [id number] [facility] 084 Branch 2023-02-03 2023-02-04 Emergency X BRANDIN [facility] ERT [id number] Univers 23:09:00 01:07:00 NOE mayo [facility] 2022-12-05 2022-12-05 Outpatient SFA SFA [id number] [place] 15:15:35 15:15:35 [id number] F Nathen Results This patient has no known results.
[2023-02-24 05:08] LABS: MCV 85.3 fL (80-100); MPV 8.1 fL (7.6-11.3); RBC Red Blood Cell Count 3.63 M/uL (3.86-4.86)
[2023-02-24 05:27] LABS: ALT/SGPT 44 U/L (13-56); AST/SGOT 25 U/L (15-37); Albumin 2.8 g/dL (3.4-5.0); Alkaline Phosphatase 131 U/L (45-117); BUN Blood Urea Nitrogen 15 mg/dL (7-18); Bicarbonate 24 mEq/L (21-32); Bilirubin Total 0.3 mg/dL (0.2-1.0); Glomerular Filtration Rate 110 ml/min (=/>90); Glucose Level 110 mg/dL (74-106); Lipase 40 U/L (13-75); Potassium 3.7 mEq/L (3.5-5.1); Protein, Total 7.9 g/dL (6.4-8.2); Sodium Level 137 mEq/L (136-145)
[2023-02-24 05:30] LABS: Troponin High Sensitivity < 3.0 pg/mL (<58.9)
[2023-02-24] MEDS ORDERED: KETOROLAC 30 MG/ML INJ ONE (05:51)
[2023-02-24] MEDS ORDERED: MAGNES/ALUMIN/SIMET 30ML UCUP ONE (05:51)
[2023-02-24] MEDS ORDERED: PANTOPRAZOLE 40 MG INJ ONE (05:51)
[2023-02-24 05:56] LABS: Specific Gravity 1.026 (1.005-1.030)
[2023-02-24 05:57] LABS: Specific Gravity 1.026 (1.005-1.030); Urine Bacteria <20 /HPF (<20); Urine Bilirubin NEGATIVE (Negative); Urine Blood Negative (Negative); Urine Clarity Clear (Clear); Urine Color Yellow (Yellow); Urine Glucose NEGATIVE (Negative); Urine Mucus Slight /HPF (None Seen); Urine Protein TRACE (Negative); Urine Urobilinogen Normal (Normal)
[2023-02-24] MEDS ORDERED: ASPIRIN 81 MG CHEWABLE TABLET ONE (07:34)
[2023-02-24] MEDS ORDERED: NA CHLORIDE 0.9% 1,000 ML ONE (07:34)
[2023-02-24] MEDS ORDERED: CEFTRIAXONE 1000 MG/VIAL ONE (08:41)
--- NOTE | 2023-02-24 08:54 | RAD REPORT ---
EXAM DESCRIPTION: Marcelle Single View02/24/2023 6:27 am CLINICAL HISTORY: Chest pain COMPARISON: 2020 FINDINGS: The lungs appear clear of acute infiltrate. The heart is normal size IMPRESSION: No acute abnormalities displayed
--- NOTE | 2023-02-24 08:56 | RAD REPORT ---
EXAM DESCRIPTION: USExtrem Venous W Compress Bil02/24/2023 8:18 am CLINICAL HISTORY: Leg pain COMPARISON: none FINDINGS: The common femoral, superficial femoral, greater saphenous, popliteal and posterior tibial veins bilaterally are compressible and demonstrate augmentation. Doppler demonstrates good flow. Grayscale, color and spectral analysis performed on all vessels IMPRESSION: No evidence of deep venous thrombosis involving either lower extremity.
--- NOTE | 2023-02-24 08:57 | RAD REPORT ---
EXAM DESCRIPTION: CT - Chest For Pe Angio - 02/24/2023 8:28 am CLINICAL HISTORY: Chest pain COMPARISON: None. TECHNIQUE: Dynamically enhanced axial 3 mm thick images of the chest were obtained during administra tion of 100 mL Isovue 370 IV contrast. Coronal and oblique reconstruction images were generated and r eviewed. Exam utilizes a protocol for optimal evaluation of pulmonary arterial tree. Maximum intensity projections 3D imaging was utilized All CT scans are performed using dose optimization technique as appropriate and may include automated exposure control or mA/KV adjustment according to patient size. FINDINGS: A pulmonary embolus is not seen. Circumferential low to intermediate density surrounds the opacified descending thoracic aorta compati ble with intramural hematoma. Almost all of descending thoracic aorta is involved. The maximum thickn ess is 8 millimeters. A pleural effusion is not seen. A pericardial effusion is not seen. A lung consolidation is not present. IMPRESSION: Negative for a pulmonary embolism. Acute intramural hematoma descending thoracic aorta
[2023-02-24] MEDS ORDERED: LABETALOL HCL 100 MG/20 ML ONE ×2 (09:30→09:32)
[2023-02-24] MEDS ORDERED: LABETALOL HCL 100 MG TAB ONE (09:30)
--- NOTE | 2023-02-24 09:35 | ER ---
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 Coronavirus screen: Vaccine status: Patient reports receiving the 2nd dose of the covid vaccine. Ebola Screen: Patient negative for fever greater than or equal to 101.5 degrees Fahrenheit, and additional compatible Ebola Virus Disease symptoms. Initial Sepsis Screen: Does the patient meet any 2 criteria? HR > 90 bpm. Does the patient have a suspected source of infection? No. Patient's initial sepsis screen is negative. Risk Assessment: Do you want to hurt yourself or someone else? Patient reports no desire to harm self or others. Onset of symptoms was February 24, 2023 at 02:30. 04:42 Method Of Arrival: Ambulatory kl 04:42 Acuity: DEVAUGHN 3 kl Triage Assessment: 04:43 General: Appears uncomfortable, well groomed, well developed, Behavior is calm, kl cooperative. Pain: Complains of pain in mid-sternal area Pain radiates to through to back. Historical: - Allergies: 04:43 No Known Allergies; kl - Home Meds: 04:43 None [Active]; kl - PMHx: 07:05 None; aa5 - PSHx: 04:43 section; kl - Immunization history:: Adult Immunizations not up to date. - Social history:: Smoking status: Patient denies any tobacco usage or history of. - Family history:: not pertinent. Screenin:38 [facility] ED Fall Risk Assessment (Adult) History of falling in the last 3 months, rv including since admission No falls in past 3 months (0 pts) Confusion or Disorientation No (0 pts) Intoxicated or Sedated No (0 pts) Impaired Gait No (0 pts) Mobility Assist Device Used No (0 pt) Altered Elimination No (0 pt) Score/Fall Risk Level 0 - 2 = Low Risk Oriented to surroundings, Maintained a safe environment, Educated pt \T\ family on fall prevention, incl call for assistance when getting out of bed, Assessed \T\ reinforced patient's understanding of fall precautions, Provided non-skid footwear, Hourly rounding (assess needs \T\ fall precautionary measures) done, Used ambulatory aids as needed (educated on \T\ assisted with), Used gait belt as appropriate. Abuse screen: Denies threats or abuse. Denies injuries from another. Nutritional screening: No deficits noted. Tuberculosis screening: No symptoms or risk factors identified. Assessment: 04:37 General: Appears uncomfortable, Behavior is calm, cooperative. Pain: Complains of pain rv in chest Pain does not radiate. Pain began suddenly. Neuro: Level of Consciousness is awake, alert, obeys commands, Oriented to person, place, time, situation. Cardiovascular: Capillary refill < 3 seconds Rhythm is sinus tachycardia. Respiratory: Airway is patent Respiratory effort is even, unlabored, rib pain on deep breathing. GI: No signs and/or symptoms were reported involving the gastrointestinal system. : No signs and/or symptoms were reported regarding the genitourinary system. 05:30 Reassessment: Patient appears in no apparent distress at this time. Patient and/or pf1 family updated on plan of care and expected duration. Pain level reassessed. Patient is alert, oriented x 3, equal unlabored respirations, skin warm/dry/pink. Patient states symptoms have improved. 06:27 Reassessment: Patient appears in no apparent distress at this time. Patient and/or pf1 family updated on plan of care and expected duration. Pain level reassessed. Patient is alert, oriented x 3, equal unlabored respirations, skin warm/dry/pink. Patient denies pain at this time. Patient states feeling better. Patient states symptoms have improved. 07:05 Reassessment: Patient is alert, oriented x 3, equal unlabored respirations, skin aa5 warm/dry/pink. Pt sitting up in bed, pt states feeling better, chest pain has improved. Awaiting chest x-ray results. . 07:05 : Denies burning with urination, Reports intermittent lower back pain. aa5 07:05 Cardiovascular: Rhythm is sinus rhythm. aa5 08:25 Reassessment: Pt to CT via stretcher . aa5 08:40 Reassessment: Patient is alert, oriented x 3, equal unlabored respirations, skin aa5 warm/dry/pink. Patient denies pain at this time. Patient states feeling better. Pain: Pain currently is 0 out of 10 on a pain scale. 08:40 Reassessment: Awaiting CT scan results. aa5 09:15 Reassessment: MD at bedside updating pt about CT scan results and need for transfer to [address] . 09:15 Reassessment: Patient is alert, oriented x 3, equal unlabored respirations, skin aa5 warm/dry/pink. Patient denies pain at this time. 09:41 Reassessment: Pt quietly crying at this time, speaking with family [id number]. aa5 09:54 Reassessment: MD notified of repeat BP and notified that pt is worried and aa5 intermittently crying. Pt was verbally reassured and appears more calm now. . 10:32 Reassessment: Patient is alert, oriented x 3, equal unlabored respirations, skin aa5 warm/dry/pink. Patient denies pain at this time. Awaiting EMS for transfer. . 10:33 Reassessment: Family at bedside . aa5 10:33 Reassessment: Report given to nurse Dasia at [facility]. aa5 10:50 Reassessment: Patient is alert, oriented x 3, equal unlabored respirations, skin aa5 warm/dry/pink. Patient denies pain at this time. Vital Signs: 04:42 BP 130 / 76; Pulse 106; Resp 18; Temp 98.6(O); Pulse Ox 100% on R/A; Weight 63.5 kg kl (M); Pain 10/10; 05:30 BP 116 / 76; Pulse 95; Resp 18; Pulse Ox 100% on R/A; pf1 06:25 BP 121 / 80; Pulse 91; Resp 16; Pulse Ox 99% on R/A; Pain 0/10; pf1 07:05 BP 119 / 83; Pulse 90; Resp 16 S; Temp 97.8(TE); Pulse Ox 99% on R/A; aa5 07:31 BP 117 / 72 LA; aa5 07:33 BP 121 / 71 RA; aa5 08:34 BP 120 / 66; ap3 09:19 BP 121 / 83; Pulse 78; Resp 16 S; Pulse Ox 100% on R/A; aa5 09:41 BP 138 / 83; Pulse 92; Resp 20 S; Pulse Ox 100% on R/A; aa5 09:54 BP 133 / 76; Pulse 93; Pulse Ox 98% on R/A; ap3 10:08 BP 119 / 83; Pulse 86; Resp 16 S; Pulse Ox 99% on R/A; Pain 0/10; aa5 10:23 BP 121 / 78; Pulse 90; Resp 17 S; Pulse Ox 98% on R/A; aa5 04:42 Pain Scale: Adult kl 06:25 Pain Scale: Adult pf1 10:08 Pain Scale: Adult aa5 07:33 MD notified of tam BP readings. aa5 ED Course: 04:26 Patient arrived in ED. ja2 04:26 Jose David Mills MD is Attending Physician. rt 04:27 Jim Rivera RN is Primary Nurse. rv 04:37 Inserted saline lock: 20 gauge in right antecubital area, using aseptic technique. rv Blood collected. 04:39 Patient has correct armband on for positive identification. Bed in low position. Call rv light in reach. Side rails up X 1. Client placed on continuous cardiac and pulse oximetry monitoring. NIBP monitoring applied. ekg monitor tech on. 04:43 Triage completed. kl 04:59 Patient maintains SpO2 saturation greater than 95% on room air. rv 06:29 Chest Single View XRAY In Process Unspecified. EDMS 07:09 Attending Physician role handed off by Jose David Mills MD mavis 07:09 Tommy Galaviz MD is Attending Physician. mavis 07:25 Repeat troponin and initial d-dimer drawn and sent to lab. aa5 08:20 US Extremity Venous W Compression Tam In Process Unspecified. EDMS 08:24 Urine Culture Sent. mm9 08:29 CT Chest For PE Angio In Process Unspecified. EDMS 09:[address] Galaviz with Adriana Ramirez Rn from the [facility] Transfer eb center. 09:42 connected the hospitalist front end manager for [facility] with Dr. Galaviz for patient eb transfer consultation. 10:50 No provider procedures requiring assistance completed. Patient transferred, IV remains aa5 in place. Administered Medications: 05:50 Drug: Alum-Mag Hydroxide-Simeth PO Suspension (200 mg-200 mg-20 mg/5 mL) 30 ml Route: pf1 PO; 06:25 Follow up: Response: No adverse reaction; Marked relief of symptoms; Pain is decreased pf1 05:50 Drug: Pantoprazole IVP 40 mg Route: IVP; Site: right antecubital; pf1 06:25 Follow up: Response: No adverse reaction; Marked relief of symptoms; Pain is decreased pf1 06:05 Drug: Ketorolac IVP 15 mg Route: IVP; Site: right antecubital; pf1 06:25 Follow up: Response: No adverse reaction; Marked relief of symptoms; Pain is decreased pf1 07:30 Drug: NS 0.9% IV 1000 ml Route: IV; Rate: 1 bolus; Site: right antecubital; ap3 08:40 Follow up: IV Status: Completed infusion; IV Intake: 1000ml aa5 07:30 Drug: Aspirin PO Chewable Tablet 81 mg Route: PO; ap3 08:40 Follow up: Response: No adverse reaction aa5 08:39 Drug: Rocephin IV 1 grams Route: IV; Rate: per protocol; Site: right antecubital; aa5 09:00 Follow up: Response: No adverse reaction; IV Status: Completed infusion aa5 09:23 Drug: Labetalol IV 5 mg Route: IV; Rate: per protocol; Site: right antecubital; aa5 09:23 Drug: Labetalol PO 100 mg Route: PO; aa5 09:59 Follow up: Response: No adverse reaction aa5 09:57 Drug: Ativan IVP 0.5 mg Route: IVP; Site: right antecubital; aa5 10:09 Follow up: Response: Marked relief of symptoms aa5 09:57 Drug: Ativan IVP 0.5 mg Route: IVP; Site: right antecubital; aa5 10:09 Follow up: Response: Marked relief of symptoms aa5 10:11 Drug: Labetalol IV 5 mg Route: IV; Rate: per protocol; Site: right antecubital; aa5 Medication: 04:59 VIS not applicable for this client. rv Intake: 08:40 IV: 1000ml; Total: 1000ml. aa5 Outcome: 09:35 ER care complete, transfer ordered by mavis 10:50 Transferred by ground EMS to [facility], Transfer form completed. aa5 X-rays sent w/ patient. Note: Report given to Mio with [facility] 10:50 Condition: stable 10:50 Instructed on the need for transfer, Demonstrated understanding of instructions. 11:01 Patient left the ED. aa5 Addendum: 02/28/2023 12:59 Addendum: Culture Results: Positive urine culture. Phone call Attempt #[address] [facility] [address], culture results faxed. Signatures: Dispatcher [employer] EDMS Rachael Shine, RN RN Tommy Goss MD MD cha Calderon, Audri RN RN aa5 Sheryl Breaux RN RN [email or web address] Daiana Araujo Ronaldo RN RN Zenaida Smith Kelly RN RN [email or web address] Lucero Delgado mm9 Jose David Mills MD MD rt Alysia Adam RN RN pf1 Corrections: (The following items were deleted from the chart) 02/24 07:33 07:33 BP 121 / 71 R Arm; aa5 aa5
--- NOTE | 2023-02-24 09:35 | EDPHYS ---
Physician Documentation [facility] Name: Talia Marcial Age: 42 yrs Sex: Female : 1980 Arrival Date: 02/24/2023 Time: 04:24 Bed 4 Private MD: ED Physician Tommy Galaviz HPI: 02/24 06:11 This 42 yrs old Female presents to ER via Ambulatory with complaints of Chest rt Pain, Back Pain. 06:11 Patient presents to the ED with a substernal chest pain that radiates to the back. This rt occurred when the patient was sleeping. It is aching nature, worse when she takes a deep breath. Denies injury, shortness of breath. Denies other acute complaints, symptoms are moderate severity, no other aggravating or alleviating factors.. Historical: - Allergies: 04:43 No Known Allergies; kl - Home Meds: 04:43 None [Active]; kl - PMHx: 07:05 None; aa5 - PSHx: 04:43 section; kl - Immunization history:: Adult Immunizations not up to date. - Social history:: Smoking status: Patient denies any tobacco usage or history of. - Family history:: not pertinent. ROS: 06:11 Constitutional: Negative for fever, chills, and weight loss, Respiratory: Negative for rt shortness of breath, cough, wheezing, and pleuritic chest pain, Abdomen/GI: Negative for abdominal pain, nausea, vomiting, diarrhea, and constipation, MS/Extremity: Negative for injury and deformity, Skin: Negative for injury, rash, and discoloration, Neuro: Negative for headache, weakness, numbness, tingling, and seizure, Psych: Negative for depression, anxiety, suicide ideation, homicidal ideation, and hallucinations. 06:11 Cardiovascular: Positive for chest pain, Negative for edema. Exam: 06:11 Constitutional: This is a well developed, well nourished patient who is awake, alert, rt and in no acute distress. Chest/axilla: Normal chest wall appearance and motion. Nontender with no deformity. No lesions are appreciated. Cardiovascular: Regular rate and rhythm with a normal S1 and S2. No gallops, murmurs, or rubs. Normal PMI, no JVD. No pulse deficits. Respiratory: Lungs have equal breath sounds bilaterally, clear to auscultation and percussion. No rales, rhonchi or wheezes noted. No increased work of breathing, no retractions or nasal flaring. Abdomen/GI: Soft, non-tender, with normal bowel sounds. No distension or tympany. No guarding or rebound. No evidence of tenderness throughout. Skin: Warm, dry with normal turgor. Normal color with no rashes, no lesions, and no evidence of cellulitis. MS/ Extremity: Pulses equal, no cyanosis. Neurovascular intact. Full, normal range of motion. Neuro: Awake and alert, GCS 15, oriented to person, place, time, and situation. Cranial nerves II-XII grossly intact. Motor strength 5/5 in all extremities. Sensory grossly intact. Cerebellar exam normal. Normal gait. Psych: Awake, alert, with orientation to person, place and time. Behavior, mood, and affect are within normal limits. 06:11 ECG was reviewed by the Attending Physician. Vital Signs: 04:42 BP 130 / 76; Pulse 106; Resp 18; Temp 98.6(O); Pulse Ox 100% on R/A; Weight 63.5 kg kl (M); Pain 10/10; 05:30 BP 116 / 76; Pulse 95; Resp 18; Pulse Ox 100% on R/A; pf1 06:25 BP 121 / 80; Pulse 91; Resp 16; Pulse Ox 99% on R/A; Pain 0/10; pf1 07:05 BP 119 / 83; Pulse 90; Resp 16 S; Temp 97.8(TE); Pulse Ox 99% on R/A; aa5 07:31 BP 117 / 72 LA; aa5 07:33 BP 121 / 71 RA; aa5 08:34 BP 120 / 66; ap3 09:19 BP 121 / 83; Pulse 78; Resp 16 S; Pulse Ox 100% on R/A; aa5 09:41 BP 138 / 83; Pulse 92; Resp 20 S; Pulse Ox 100% on R/A; aa5 09:54 BP 133 / 76; Pulse 93; Pulse Ox 98% on R/A; ap3 10:08 BP 119 / 83; Pulse 86; Resp 16 S; Pulse Ox 99% on R/A; Pain 0/10; aa5 10:23 BP 121 / 78; Pulse 90; Resp 17 S; Pulse Ox 98% on R/A; aa5 04:42 Pain Scale: Adult kl 06:25 Pain Scale: Adult pf1 10:08 Pain Scale: Adult aa5 07:33 MD notified of timothy BP readings. aa5 MDM: 05:30 Patient medically screened. rt 07:18 Differential diagnosis: abnormal EKG, acute myocardial infarction, acute pericarditis, mavis anxiety, coronary artery disease chest wall pain, congestive heart failure Cholelithiasis costochondritis, esophagitis, gastritis, herpes zoster, hiatal hernia, mitral valve prolapse, pancreatitis, peptic ulcer disease, pericarditis, pleurisy, pneumonia, pulmonary embolus, stable angina, thoracic aortic disection, unstable angina. HEART Score: History: Slightly Suspicious (0), ECG: Normal (0), Age: < or = 45 years (0), Risk Factors: No Risk Factors Known (0), Troponin: < or = 1 x Normal Limit (0). The patient was given aspirin in the Emergency Department. BLADIMIR Risk Score: TOTAL SCORE = 0. Data reviewed: vital signs, nurses notes, lab test result(s), EKG, radiologic studies. Consideration of Admission/Observation Patient was admitted/placed on observation. Escalation of care including admission/observation considered. I considered the following discharge prescriptions or medication management in the emergency department Medications were administered in the Emergency Department. See MAR. Independent interpretation of the following test(s) in the Emergency Department EKG: See my EKG interpretation above. Test considered but Not performed: CT: no cta chest. Historians other than the Patient: none. Care significantly affected by the following chronic conditions: none. Counseling: I had a detailed discussion with the patient and/or guardian regarding: the historical points, exam findings, and any diagnostic results supporting the discharge/admit diagnosis, lab results, radiology results, the need for outpatient follow up, for definitive care, a library media assistant, a family practitioner. 02/24 04:59 Order name: CBC with Diff; Complete Time: 05: kl 02/24 04:59 Order name: CMP; Complete Time: : kl 02/24 04:59 Order name: Lipase; Complete Time: 05: kl 02/24 04:59 Order name: Test, Urine; Complete Time: 05:59 kl 02/24 04:59 Order name: Urinalysis w/ reflexes; Complete Time: 05:59 kl 02/24 04:59 Order name: Troponin High Sensitivity; Complete Time: 05:33 kl 02/24 06:00 Order name: Urine Culture EDMS 02/24 07:18 Order name: D-Dimer; Complete Time: 07:52 mavis 02/24 07:18 Order name: Troponin High Sensitivity; Complete Time: 08:34 mavis 02/24 07:59 Order name: Urine Culture [facility] 02/24 05:59 Order name: Chest Single View XRAY; Complete Time: 09:43 rt 02/24 07:53 Order name: US Extremity Venous W Compression Timothy; Complete Time: 09:43 mavis 02/24 07:53 Order name: CT Chest For PE Angio; Complete Time: 09:43 mavis 02/24 04:37 Order name: EKG - Nurse/Tech; Complete Time: 04:37 rv 02/24 04:59 Order name: IV Saline Lock; Complete Time: 04:59 kl 02/24 04:59 Order name: Labs collected and sent; Complete Time: 04:59 kl 02/24 07:23 Order name: Bilateral blood pressure; Complete Time: 07:32 [facility] EC:11 Rate is 101 beats/min. Rhythm is regular, Sinus tachycardia with No ectopy. QRS [place] is rt Normal. VT interval is normal. QRS interval is normal. QT interval is normal. No Q waves. T waves are Normal. No ST changes noted. Administered Medications: 05:50 Drug: Alum-Mag Hydroxide-Simeth PO Suspension (200 mg-200 mg-20 mg/5 mL) 30 ml Route: pf1 PO; 06:25 Follow up: Response: No adverse reaction; Marked relief of symptoms; Pain is decreased pf1 05:50 Drug: Pantoprazole IVP 40 mg Route: IVP; Site: right antecubital; pf1 06:25 Follow up: Response: No adverse reaction; Marked relief of symptoms; Pain is decreased pf1 06:05 Drug: Ketorolac IVP 15 mg Route: IVP; Site: right antecubital; pf1 06:25 Follow up: Response: No adverse reaction; Marked relief of symptoms; Pain is decreased pf1 07:30 Drug: NS 0.9% IV 1000 ml Route: IV; Rate: 1 bolus; Site: right antecubital; ap3 08:40 Follow up: IV Status: Completed infusion; IV Intake: 1000ml aa5 07:30 Drug: Aspirin PO Chewable Tablet 81 mg Route: PO; ap3 08:40 Follow up: Response: No adverse reaction aa5 08:39 Drug: Rocephin IV 1 grams Route: IV; Rate: per protocol; Site: right antecubital; aa5 09:00 Follow up: Response: No adverse reaction; IV Status: Completed infusion aa5 09:23 Drug: Labetalol IV 5 mg Route: IV; Rate: per protocol; Site: right antecubital; aa5 09:23 Drug: Labetalol PO 100 mg Route: PO; aa5 09:59 Follow up: Response: No adverse reaction aa5 09:57 Drug: Ativan IVP 0.5 mg Route: IVP; Site: right antecubital; aa5 10:09 Follow up: Response: Marked relief of symptoms aa5 09:57 Drug: Ativan IVP 0.5 mg Route: IVP; Site: right antecubital; aa5 10:09 Follow up: Response: Marked relief of symptoms aa5 10:11 Drug: Labetalol IV 5 mg Route: IV; Rate: per protocol; Site: right antecubital; aa5 Disposition Summary: 02/24/23 09:35 Transfer Ordered Transfer Location: 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, 8 MM THICK mavis Discharge Instructions: - Nonspecific Chest Pain, Adult mavis - Chest Wall Pain mavis - Chest Wall Pain, [id number] mavis - Urinary Tract Infection, Adult, [id number] mavis - Nonspecific Chest Pain, Adult, [id number] mavis - Discharge Summary Sheet pf1 Forms: - Medication Reconciliation Form mavis - SBAR form pf1 Prescriptions: - Cipro 250 mg Oral Tablet - take 1 tablet by ORAL route every 12 hours; 14 tablet; Refills: 0, Product mavis Selection Permitted - Ibuprofen 600 mg Oral Tablet - take 1 tablet by ORAL route every 6 hours As needed take with food; 30 tablet; mavis Refills: 0, Product Selection Permitted - Pepcid 20 mg Oral Tablet - take 1 tablet by ORAL route every 12 hours for 10 days; 20 tablet; Refills: 0, mavis Product Selection Permitted Signatures: Dispatcher [employer] Rachael Mejía, RN Tommy Booker MD MD cha Calderon, Audri, RN RN aa5 Sheryl Breaux RN RN ap3 Jim Rivera RN RN rv [place], Ryan, MD MD rt Alysia Adam RN RN pf1 Corrections: (The following items were deleted from the chart) 11: 09:35 [place]OR[place], LINDA [email or web address]
[2023-02-24] MEDS ORDERED: LORazepam 2 MG/ML VIAL ONE (10:04)
[2023-02-24 11:25] VITALS: TEMP 97.8
[2023-02-24 11:39] VITALS: BP 121/78; O2SAT 98
--- NOTE | 2023-02-26 17:17 | EKG ---
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
== END 2023-02-24 11:01 | disposition short-term general hospital (02) ==
LOC: ER 04:24
DX: I71.012 Dissection of descending thoracic aorta (principal); S20.20XA Contusion of thorax, unspecified, initial encounter; I10 Essential (primary) hypertension
CPT/HCPCS: 96365; 96361; 93005; 87088; 85025; 81001; 87086; 36415; 81025; 85379; 87077; 87186; 84484 ×2; 83690; 80053; 71275; 71045; 93970; 96375; 99285; Q9967; C9113; J7030; J0696